=== PATIENT | male | born 1945 | race Caucasian/White ===

== ENCOUNTER 2023-06-06 10:31 | Inpatient (IN) | payer OTHER ==
[2023-06-06] VITALS (49 sets, daily range): BP systolic 89–124; BP diastolic 40–69; PULSE 51–78; RESP 14–67; O2SAT 92–98
[~2023-06-06] VITALS: Ht 175.3 cm; Wt 72.1 kg
[2023-06-06 11:24] LABS: BASOPHILS # (AUTO) 0.01 K/uL (0.00-0.20); BASOPHILS % (AUTO) 0.1 % (0.0-5.0); EOSINOPHILS # (AUTO) 0.11 K/uL (0.00-0.70); EOSINOPHILS % (AUTO) 1.5 % (0.0-8.0); HEMATOCRIT 42.1 % (42-54); IMMATURE GRANULOCYTE ABSOLUTE 0.03 K/uL (0-1); LYMPHOCYTES # (AUTO) 0.6 K/uL (1.0-4.8); LYMPHOCYTES % (AUTO) 8.9 % (21.0-51.0); MEAN CORPUSCULAR HEMOGLOBIN 28.6 pg (27.0-33.0); MEAN CORPUSCULAR HGB CONC 31.6 g/dL (32.0-36.0); MEAN CORPUSCULAR VOLUME 90.5 fL (79-99); MONOCYTES # (AUTO) 0.4 K/uL (0.1-1.0); MONOCYTES % (AUTO) 5.5 % (3.0-13.0); NEUTROPHILS % (AUTO) 83.6 % (40.0-77.0); PLATELET COUNT (AUTO) 107 K/uL (130-400); RED BLOOD CELL COUNT(AUTO) 4.65 MIL/uL (4.50-6.20); RED CELL DISTRIBUTION WIDTH 14.4 % (11.0-15.5); WHITE BLOOD COUNT (AUTO) 7.2 K/uL (4.8-10.8)
[2023-06-06 11:34] LABS: ALBUMIN 2.4 g/dL (3.5-5.0); BILIRUBIN,TOTAL 0.4 mg/dL (0.2-1.0); CREATININE 0.7 mg/dL (0.5-1.3); TOTAL PROTEIN, SERUM 5.9 g/dL (6.0-8.3)
[2023-06-06 11:34] LABS: ABG BASE EXCESS 5.2 mmol/L (-2.0-3.0); ABG OXYGEN SATURATION 91.6 % (95.0-99.0); ABG PCO2 63 mmHg (35-48); ABG PH 7.335 (7.35-7.450); CARBON MONOXIDE 1.3; HHb 8.2; PO2, ARTERIAL BG 62.3 mmHg (83.0-108.0); VENT MODE, BG NC (ROOM AIR)
[2023-06-06 11:58] LABS: INR 0.95 (0.85-1.15); PROTHROMBIN TIME 11.2 SEC (9.6-11.6)
[2023-06-06 12:00] LABS: PARTIAL THROMBOPLASTIN TIME 27.9 SEC (26.3-35.5)
[2023-06-06] MEDS: IPRATROPIUM/ALBUTEROL SULFATE 3 ML SOLUTION IH ONE (12:40)
[2023-06-06 13:49] LABS: APPEARANCE,URINE CLOUDY (CLEAR); BILIRUBIN,URINE MODERATE mg/dL (NEGATIVE); COLOR,URINE RED (YELLOW); GLUCOSE, URINE (UA) 100 mg/dL (NEGATIVE); KETONES,URINE 15 mg/dL (NEGATIVE); LEUKOCYTE ESTERASE ,URINE MODERATE Leu/uL (NEGATIVE); NITRATE,URINE POSITIVE (NEGATIVE); OCCULT BLOOD,URINE LARGE (NEGATIVE); PH,URINE 6.5 (5.0-8.0); PROTEIN,URINE >=300 mg/dL (NEGATIVE); UROBILINOGEN,URINE >=8.0 mg/dL (0.2-1.0)
[2023-06-06 13:53] LABS: ADD UA MICROSCOPIC YES
[2023-06-06 14:58] LABS: RBC,URINE TNTC /HPF (0-1)
[2023-06-06 14:59] LABS: BACTERIA,URINE Moderate /HPF (None Seen)
[2023-06-06] MEDS ORDERED: 0.9%NACL 50ML IV SCH (15:00)
[2023-06-06 15:01] LABS: SQUAMOUS EPITHELIAL CELL,UR 0-2 /HPF (0-2)
[2023-06-06] MEDS ORDERED: ONDANSETRON 4MG INJ IVP PRN (15:30)
[2023-06-06] MEDS ORDERED: ACETAMINOPHEN 500 MG TABLET PO PRN (15:30)
[2023-06-06] MEDS: 0.9%NACL 1000ML 1,000 ML IV SCH (16:07)
[2023-06-06] MEDS: SOLU-MEDROL 40MG VIAL IVP SCH (16:07)
[2023-06-06] MEDS: PANTOPRAZOLE 40 MG/VIAL IVP SCH (16:07)
[2023-06-06] MEDS: ZOSYN 3.375GM +NS 50ML IVPB SCH (16:07)
[2023-06-06 16:12] LABS: SARS-CoV-2, RNA, NAAT NEGATIVE SARS CoV-2 (NEGATIVE)
[2023-06-06 16:19] LABS: INFLUENZA TYPE A Negative For Type A (NEGATIVE); INFLUENZA TYPE B Negative For Type B (NEGATIVE)
[2023-06-06] MEDS ORDERED: PRED20TA3 PO (18:44)
[2023-06-06] MEDS ORDERED: METO50TA18 PO (18:44)
[2023-06-06] MEDS ORDERED: ATOR40TA71 PO (18:44)
[2023-06-06] MEDS ORDERED: FLEC50TA3 PO (18:44)
[2023-06-06] MEDS ORDERED: DILT120C78 PO (18:44)
[2023-06-06] MEDS ORDERED: CHOL200012 PO (18:44)
[2023-06-06] MEDS ORDERED: TAMS-1 PO (18:44)
[2023-06-06] MEDS ORDERED: MONT-39 PO (18:44)
[2023-06-06] MEDS ORDERED: DOXY100T2 PO (18:44)
[2023-06-06 19:24] LABS: ABG BASE EXCESS 8.5 mmol/L (-2.0-3.0); ABG HCO3 33.9 mmol/L (21.0-28.0); ABG PCO2 50 mmHg (35-48); ABG PH 7.452 (7.35-7.450); CARBON MONOXIDE 1.4; HHb 3.9; PO2, ARTERIAL BG 73.3 mmHg (83.0-108.0)
[2023-06-06] MEDS ORDERED: VANCOMYCIN PROTOCOL PER PHARMACY IV SCH (19:30)
[2023-06-06] MEDS: IPRATROPIUM 0.5 MG/2.5 ML INH IH SCH (19:31)
[2023-06-06] MEDS: BUDESONIDE 0.5 MG/2 ML INH IH SCH (19:31)
[2023-06-06 19:35] LABS: HEMATOCRIT 40.9 % (42-54)
[2023-06-06] MEDS: VANCOMYCIN 1.75 GM/250 ML BAG 250 ML IV ONE (20:29)
[2023-06-06] MEDS: CEFEPIME HCL 2 GM VIAL IVPB SCH (20:50)
[2023-06-06] MEDS: MONTELUKAST SODIUM 10 MG TAB PO SCH (20:50)
[2023-06-06] MEDS: DOXYCYCLINE HYCLATE 100 MG TABLET PO SCH (20:50)
[2023-06-06] MEDS: ATORVASTATIN 40 MG TABLET PO SCH (20:50)
[2023-06-06] MEDS ORDERED: DEXTROSE 50%-WATER 50 ML DISP.SYRIN IV PRN (21:00)
[2023-06-06] MEDS ORDERED: GLUCAGON 1MG KIT 1 MG ML IM PRN (21:00)
[2023-06-07] VITALS (70 sets, daily range): BP systolic 90–138; BP diastolic 35–106; PULSE 44–82; RESP 13–177; O2SAT 92–96
[2023-06-07 04:49] LABS: HEMATOCRIT 39.4 % (42-54); IMMATURE GRANULOCYTE ABSOLUTE 0.02 K/uL (0-1); LYMPHOCYTES # (AUTO) 0.5 K/uL (1.0-4.8); LYMPHOCYTES % (AUTO) 7.4 % (21.0-51.0); MEAN CORPUSCULAR HEMOGLOBIN 28.8 pg (27.0-33.0); MEAN CORPUSCULAR HGB CONC 31.5 g/dL (32.0-36.0); MEAN CORPUSCULAR VOLUME 91.4 fL (79-99); MONOCYTES # (AUTO) 0.1 K/uL (0.1-1.0); MONOCYTES % (AUTO) 1.6 % (3.0-13.0); NEUTROPHILS # (AUTO) 5.5 K/uL (1.8-7.7); NEUTROPHILS % (AUTO) 90.7 % (40.0-77.0); PLATELET COUNT (AUTO) 96 K/uL (130-400); RED BLOOD CELL COUNT(AUTO) 4.31 MIL/uL (4.50-6.20); RED CELL DISTRIBUTION WIDTH 14.5 % (11.0-15.5); WHITE BLOOD COUNT (AUTO) 6.1 K/uL (4.8-10.8)
[2023-06-07 05:02] LABS: ALBUMIN 2.2 g/dL (3.5-5.0); BILIRUBIN,TOTAL 0.5 mg/dL (0.2-1.0); CREATININE 0.5 mg/dL (0.5-1.3); MAGNESIUM 2.1 mg/dL (1.80-2.40); POTASSIUM 4.1 mmol/L (3.5-5.1); TOTAL PROTEIN, SERUM 5.2 g/dL (6.0-8.3)
[2023-06-07] MEDS: TAMSULOSIN HCL 0.4 MG CAP.ER.24H PO SCH (08:25)
[2023-06-07] MEDS: VANCOMYCIN 1G/250ML KIT 250 ML IV SCH (08:25)
[2023-06-07] MEDS: DILTIAZEM 60MG TAB PO SCH (08:26)
[2023-06-07] MEDS: CHOLECALCIFEROL 25 MCG PO SCH (08:28)
[2023-06-07 12:42] LABS: ABG BASE EXCESS 6.3 mmol/L (-2.0-3.0); ABG HCO3 32.3 mmol/L (21.0-28.0); ABG OXYGEN SATURATION 90.8 % (95.0-99.0); ABG PCO2 52 mmHg (35-48); ABG PH 7.415 (7.35-7.450); PO2, ARTERIAL BG 59.6 mmHg (83.0-108.0); VENT MODE, BG 3LNC (ROOM AIR)
[2023-06-07] MEDS: SODIUM CHLORIDE 3% FOR INHALATION 4 ML/AMP VIAL.NEB IH ONE (15:06)
[2023-06-08] VITALS (18 sets, daily range): BP systolic 113–158; BP diastolic 51–86; PULSE 48–81; RESP 18–20; O2SAT 92–95
[2023-06-08] MEDS: SODIUM CHLORIDE 3% FOR INHALATION 4 ML/AMP VIAL.NEB IH ONE ×2 (09:43→14:20)
[2023-06-09] VITALS (17 sets, daily range): BP systolic 128–157; BP diastolic 68–81; PULSE 56–98; RESP 18–20; O2SAT 93–96
[2023-06-09] MEDS: IPRATROPIUM 0.5 MG/2.5 ML INH IH SCH (00:59)
[2023-06-09 03:12] LABS: HEMATOCRIT 37.4 % (42-54); MEAN CORPUSCULAR HGB CONC 32.4 g/dL (32.0-36.0); MEAN CORPUSCULAR VOLUME 89.7 fL (79-99); RED BLOOD CELL COUNT(AUTO) 4.17 MIL/uL (4.50-6.20); RED CELL DISTRIBUTION WIDTH 14.4 % (11.0-15.5); WHITE BLOOD COUNT (AUTO) 7.8 K/uL (4.8-10.8)
[2023-06-09 03:34] LABS: ALBUMIN 2.1 g/dL (3.5-5.0); BILIRUBIN,TOTAL 0.5 mg/dL (0.2-1.0); CREATININE 0.6 mg/dL (0.5-1.3); MAGNESIUM 2.1 mg/dL (1.80-2.40); POTASSIUM 3.9 mmol/L (3.5-5.1)
[2023-06-09] MEDS: SOLU-MEDROL 40MG VIAL IVP SCH (03:35)
[2023-06-09 21:08] LABS: MYCOPLASMA AB IGM <770 U/mL (0-769)
[2023-06-10] VITALS (14 sets, daily range): BP systolic 128–147; BP diastolic 73–78; PULSE 58–102; RESP 16–18; O2SAT 93–95
[2023-06-10 04:08] LABS: HEMATOCRIT 37.5 % (42-54); MEAN CORPUSCULAR HEMOGLOBIN 28.8 pg (27.0-33.0); MEAN CORPUSCULAR HGB CONC 32.5 g/dL (32.0-36.0); MEAN CORPUSCULAR VOLUME 88.7 fL (79-99); RED BLOOD CELL COUNT(AUTO) 4.23 MIL/uL (4.50-6.20); RED CELL DISTRIBUTION WIDTH 14.6 % (11.0-15.5); WHITE BLOOD COUNT (AUTO) 8.5 K/uL (4.8-10.8)
[2023-06-10 04:23] LABS: ALBUMIN 2.1 g/dL (3.5-5.0); BILIRUBIN,TOTAL 0.5 mg/dL (0.2-1.0); CREATININE 0.5 mg/dL (0.5-1.3); MAGNESIUM 2.1 mg/dL (1.80-2.40); POTASSIUM 4.2 mmol/L (3.5-5.1); TOTAL PROTEIN, SERUM 5.1 g/dL (6.0-8.3)
[2023-06-11] VITALS (17 sets, daily range): BP systolic 122–135; BP diastolic 62–81; PULSE 61–102; RESP 16–20; O2SAT 94–97
[2023-06-11 05:42] LABS: HEMATOCRIT 38.8 % (42-54); MEAN CORPUSCULAR HEMOGLOBIN 28.5 pg (27.0-33.0); MEAN CORPUSCULAR HGB CONC 32.2 g/dL (32.0-36.0); MEAN CORPUSCULAR VOLUME 88.4 fL (79-99); RED BLOOD CELL COUNT(AUTO) 4.39 MIL/uL (4.50-6.20); RED CELL DISTRIBUTION WIDTH 14.6 % (11.0-15.5); WHITE BLOOD COUNT (AUTO) 7.9 K/uL (4.8-10.8)
[2023-06-11 05:59] LABS: ALBUMIN 2.2 g/dL (3.5-5.0); BILIRUBIN,TOTAL 0.6 mg/dL (0.2-1.0); CREATININE 0.5 mg/dL (0.5-1.3); MAGNESIUM 2.1 mg/dL (1.80-2.40); POTASSIUM 3.9 mmol/L (3.5-5.1); TOTAL PROTEIN, SERUM 5.1 g/dL (6.0-8.3)
[2023-06-12] VITALS (16 sets, daily range): BP systolic 124–145; BP diastolic 57–97; PULSE 62–98; RESP 18–21; O2SAT 93–97
[2023-06-12 03:55] LABS: HEMATOCRIT 39.8 % (42-54); MEAN CORPUSCULAR HEMOGLOBIN 28.7 pg (27.0-33.0); MEAN CORPUSCULAR HGB CONC 31.7 g/dL (32.0-36.0); MEAN CORPUSCULAR VOLUME 90.7 fL (79-99); RED BLOOD CELL COUNT(AUTO) 4.39 MIL/uL (4.50-6.20); RED CELL DISTRIBUTION WIDTH 14.6 % (11.0-15.5); WHITE BLOOD COUNT (AUTO) 9.2 K/uL (4.8-10.8)
[2023-06-12 04:24] LABS: ALBUMIN 2.1 g/dL (3.5-5.0); BILIRUBIN,TOTAL 0.4 mg/dL (0.2-1.0); CREATININE 0.5 mg/dL (0.5-1.3); MAGNESIUM 1.9 mg/dL (1.80-2.40); PHOSPHORUS 2.5 mg/dL (2.5-4.9); POTASSIUM 3.8 mmol/L (3.5-5.1)
[2023-06-12] MEDS: MAGNESIUM 2GM PREMIX 50ML 50 ML IV SCH (05:20)
[2023-06-12] MEDS: METOPROLOL TARTRATE 1 MG/ML 5ML VIAL IV ONE (10:07)
[2023-06-12] MEDS: DILTIAZEM 120MG SR CAP PO SCH (11:15)
[2023-06-12] MEDS: CEFEPIME HCL 2 GM VIAL IVPB SCH (12:35)
[2023-06-12] MEDS: DOXYCYCLINE HYCLATE 100 MG TABLET PO SCH (12:35)
[2023-06-12] MEDS: PREDNISONE 20 MG TABLET PO SCH (21:15)
[2023-06-13] VITALS (17 sets, daily range): BP systolic 113–142; BP diastolic 68–83; PULSE 64–80; RESP 18–20; O2SAT 95–100
[2023-06-13 04:28] LABS: HEMATOCRIT 39.9 % (42-54); MEAN CORPUSCULAR HEMOGLOBIN 28.5 pg (27.0-33.0); MEAN CORPUSCULAR HGB CONC 31.6 g/dL (32.0-36.0); MEAN CORPUSCULAR VOLUME 90.3 fL (79-99); RED BLOOD CELL COUNT(AUTO) 4.42 MIL/uL (4.50-6.20); RED CELL DISTRIBUTION WIDTH 14.7 % (11.0-15.5); WHITE BLOOD COUNT (AUTO) 9.7 K/uL (4.8-10.8)
[2023-06-13 04:51] LABS: ALBUMIN 2.3 g/dL (3.5-5.0); BILIRUBIN,TOTAL 0.4 mg/dL (0.2-1.0); CREATININE 0.5 mg/dL (0.5-1.3); MAGNESIUM 2.3 mg/dL (1.80-2.40); POTASSIUM 4.1 mmol/L (3.5-5.1); TOTAL PROTEIN, SERUM 5.1 g/dL (6.0-8.3)
[2023-06-13] MEDS: VANCOMYCIN 1G/250ML KIT 250 ML IV SCH (08:52)
[2023-06-14] VITALS (15 sets, daily range): BP systolic 109–137; BP diastolic 57–77; PULSE 64–95; RESP 18–24; O2SAT 94–98
[2023-06-14 04:33] LABS: HEMATOCRIT 40.6 % (42-54); MEAN CORPUSCULAR HEMOGLOBIN 28.6 pg (27.0-33.0); MEAN CORPUSCULAR HGB CONC 31.5 g/dL (32.0-36.0); MEAN CORPUSCULAR VOLUME 90.6 fL (79-99); RED BLOOD CELL COUNT(AUTO) 4.48 MIL/uL (4.50-6.20); RED CELL DISTRIBUTION WIDTH 14.7 % (11.0-15.5); WHITE BLOOD COUNT (AUTO) 8.4 K/uL (4.8-10.8)
[2023-06-14 04:56] LABS: ALBUMIN 2.2 g/dL (3.5-5.0); BILIRUBIN,TOTAL 0.6 mg/dL (0.2-1.0); CREATININE 0.4 mg/dL (0.5-1.3); TOTAL PROTEIN, SERUM 5.1 g/dL (6.0-8.3)
[2023-06-14] MEDS: IPRATROPIUM 0.5 MG/2.5 ML INH IH SCH (17:17)
[2023-06-15] VITALS (16 sets, daily range): BP systolic 112–141; BP diastolic 70–83; PULSE 70–123; RESP 18–22; O2SAT 95–97
[2023-06-15 04:01] LABS: HEMATOCRIT 41.4 % (42-54); MEAN CORPUSCULAR HEMOGLOBIN 28.4 pg (27.0-33.0); MEAN CORPUSCULAR HGB CONC 31.9 g/dL (32.0-36.0); MEAN CORPUSCULAR VOLUME 89.2 fL (79-99); RED BLOOD CELL COUNT(AUTO) 4.64 MIL/uL (4.50-6.20); WHITE BLOOD COUNT (AUTO) 8.4 K/uL (4.8-10.8)
[2023-06-15 04:22] LABS: ALBUMIN 2.3 g/dL (3.5-5.0); BILIRUBIN,TOTAL 0.6 mg/dL (0.2-1.0); CREATININE 0.6 mg/dL (0.5-1.3); TOTAL PROTEIN, SERUM 5.1 g/dL (6.0-8.3)
[2023-06-16] VITALS (8 sets, daily range): BP systolic 120–130; BP diastolic 63–76; PULSE 60–91; RESP 18–20; O2SAT 96–97
== END 2023-06-16 12:15 | DRG 189 ==
LOC: EDH 10:31 → EDHIP 14:56 → 2CV 16:55 → 2AH 06-07 13:44 → 4AH 06-15 04:52
PROVIDERS: ADMIT Internal Medicine; ATTEND Internal Medicine
PROC: 5A09357 Assistance with Respiratory Ventilation, Less than 24 Consecutive Hours, Continuous Positive Airway Pressure (ICD-10-PCS; principal; 2023-06-06)
PROC: 5A09357 Assistance with Respiratory Ventilation, Less than 24 Consecutive Hours, Continuous Positive Airway Pressure (ICD-10-PCS; 2023-06-08)
PROC: 5A09357 Assistance with Respiratory Ventilation, Less than 24 Consecutive Hours, Continuous Positive Airway Pressure (ICD-10-PCS; 2023-06-10)
PROC: 5A09357 Assistance with Respiratory Ventilation, Less than 24 Consecutive Hours, Continuous Positive Airway Pressure (ICD-10-PCS; 2023-06-11)
DX: J96.21 Acute and chronic respiratory failure with hypoxia (principal); J18.9 Pneumonia, unspecified organism; J44.1 Chronic obstructive pulmonary disease with (acute) exacerbation; E44.0 Moderate protein-calorie malnutrition; J44.0 Chronic obstructive pulmonary disease with (acute) lower respiratory infection; E87.29 Other acidosis; I48.20 Chronic atrial fibrillation, unspecified; N13.6 Pyonephrosis; I48.92 Unspecified atrial flutter; J96.22 Acute and chronic respiratory failure with hypercapnia; Z20.822 Contact with and (suspected) exposure to COVID-19; Z87.442 Personal history of urinary calculi; R31.0 Gross hematuria; Z99.81 Dependence on supplemental oxygen; I71.43 Infrarenal abdominal aortic aneurysm, without rupture; I10 Essential (primary) hypertension; I25.10 Atherosclerotic heart disease of native coronary artery without angina pectoris; E78.5 Hyperlipidemia, unspecified; I08.0 Rheumatic disorders of both mitral and aortic valves; N20.0 Calculus of kidney; N40.1 Benign prostatic hyperplasia with lower urinary tract symptoms; Y95 Nosocomial condition; Z87.891 Personal history of nicotine dependence; Z86.79 Personal history of other diseases of the circulatory system; Z95.2 Presence of prosthetic heart valve; Z95.5 Presence of coronary angioplasty implant and graft
CPT/HCPCS: 36415; 36600; 71045; 71250; 74176; 80053; 80202; 81001; 82435; 82550; 82803; 82947; 82948; 83605; 83735; 83880; 84100; 84132; 84145; 84295; 84484; 85014; 85018; 85025; 85027; 85610; 85651; 85730; 86140; 86738; 87040; 87088; 87449; 87635; 87804; 93005; 93306; 93970; 94640; 94660; 94664; C9113; G0378; J0692; J2543; J2920; J3370; J3475; J3490; J7030